=== PATIENT | female | born 1990 | race Hispanic/Latino ===

== ENCOUNTER 2017-03-06 16:31 | Emergency (ER) | payer SELFPAY ==
[2017-03-06 16:55] LABS: APPEARANCE,URINE Clear (CLEAR); BILIRUBIN,URINE Negative (NEGATIVE); COLOR,URINE Yellow (YELLOW); GLUCOSE, URINE (UA) Negative (NEGATIVE); KETONES,URINE 15 mg/dL (NEGATIVE); LEUKOCYTE ESTERASE ,URINE Small (NEGATIVE); NITRATE,URINE Negative (NEGATIVE); OCCULT BLOOD,URINE Negative (NEGATIVE); PH,URINE 6.5 (5.0-8.0); PROTEIN,URINE Negative (NEGATIVE)
[2017-03-06 17:05] LABS: HCG,QUAL RESULT NEGATIVE (NEGATIVE)
[2017-03-06] MEDS ORDERED: IPRATROPIUM/ALBUTEROL SULFATE 3 ML SOLUTION IH ONE (17:12)
[2017-03-06] MEDS ORDERED: ACETAMINOPHEN EXTRA STRENGTH 500 MG TABLET ONE (17:16)
[2017-03-06] MEDS ORDERED: SODIUM CHLORIDE 0.9% 1000ML 1,000 ML IV ONE (17:16)
[2017-03-06] MEDS ORDERED: ONDANSETRON HCL 4 MG/2 ML VIAL ONE (17:16)
[2017-03-06 17:32] LABS: RBC,URINE 0-1 /HPF (0-1)
[2017-03-06 17:33] LABS: BACTERIA,URINE Few /HPF (None Seen); SQUAMOUS EPITHELIAL CELL,UR Few /LPF (0-2)
[2017-03-06 17:37] LABS: CREATININE 0.7 mg/dL (0.5-1.5); POTASSIUM 3.2 mmol/L (3.5-5.1)
[2017-03-06 17:43] LABS: ALBUMIN 3.3 g/dL (3.5-5.0); BILIRUBIN,TOTAL 0.7 mg/dL (0.2-1.0); TOTAL PROTEIN, SERUM 6.8 g/dL (6.0-8.3)
[2017-03-06 17:45] LABS: BASOPHILS % (AUTO) 0.4 % (0.0-5.0); EOSINOPHILS % (AUTO) 1.1 % (0.0-8.0); HEMATOCRIT 36.4 % (36-48); MEAN CORPUSCULAR HEMOGLOBIN 29.5 pg (27.0-33.0); MEAN CORPUSCULAR HGB CONC 34.6 g/dL (32.0-36.0); MEAN CORPUSCULAR VOLUME 85.1 fL (79-99); MONOCYTES % (AUTO) 7.3 % (3.0-13.0); NEUTROPHILS % (AUTO) 86.5 % (40.0-77.0); PLATELET COUNT (AUTO) 192 K/uL (130-400); RED BLOOD CELL COUNT(AUTO) 4.27 MIL/uL (4.00-5.50); RED CELL DISTRIBUTION WIDTH 13.7 % (11.0-15.5); WHITE BLOOD COUNT (AUTO) 6.9 K/uL (4.8-10.8)
[2017-03-06 18:05] LABS: LYMPHOCYTES % (AUTO) 4.7 % (21.0-51.0)
== END 2017-03-06 18:21 | disposition home or self-care (01) ==
LOC: EDH 16:31
DX: J09.X2 Influenza due to identified novel influenza A virus with other respiratory manifestations (principal); R50.81 Fever presenting with conditions classified elsewhere; J45.909 Unspecified asthma, uncomplicated
CPT/HCPCS: 36415; 80053; 81001; 81025; 83690; 85025; 87804 ×2; 94640; 96361; 96374; 99284; J2405; J7030

== ENCOUNTER 2018-04-01 16:12 | Emergency (ER) | payer OTHER | END 2018-04-01 18:39 | disposition home or self-care (01) | LOC: EDH 16:12 | DX: H61.21 Impacted cerumen, right ear (principal); J45.909 Unspecified asthma, uncomplicated | CPT/HCPCS: 99282 ==

== ENCOUNTER 2021-04-26 21:26 | Inpatient (IN) | payer MEDICAID ==
[~2021-04-26] VITALS: Ht 149.9 cm; Wt 96.6 kg
[2021-04-26] MEDS ORDERED: LACTATED RINGERS 1000ML 1,000 ML IV PRN (22:30)
[2021-04-26] MEDS ORDERED: ROPIVACAINE 0.2% 100ML VIAL 100 ML EP SCH (22:30)
[2021-04-26] MEDS ORDERED: LACTATED RINGERS 500 ML 500 ML IV PRN (22:30)
[2021-04-26] MEDS ORDERED: PROMETHAZINE HCL 25 MG/ML 1ML AMPULE IM PRN (22:30)
[2021-04-26] MEDS ORDERED: MEPERIDINE-PF 50 MG/ML SYG IVP PRN (22:30)
[2021-04-26] MEDS ORDERED: EPHEDRINE SULFATE 50 MG/ML AMPULE IVP PRN (22:30)
[2021-04-26] MEDS ORDERED: NALOXONE HCL 0.4 MG/1 ML ML IV PRN (22:30)
[2021-04-26 22:33] LABS: APPEARANCE,URINE CLEAR (CLEAR); BILIRUBIN,URINE NEGATIVE (NEGATIVE); COLOR,URINE YELLOW (YELLOW); GLUCOSE, URINE (UA) NEGATIVE (NEGATIVE); KETONES,URINE NEGATIVE (NEGATIVE); LEUKOCYTE ESTERASE ,URINE TRACE (NEGATIVE); NITRATE,URINE NEGATIVE (NEGATIVE); OCCULT BLOOD,URINE NEGATIVE (NEGATIVE); PROTEIN,URINE 30 mg/dL (NEGATIVE); UROBILINOGEN,URINE 0.2 mg/dL (0.2-1.0)
[2021-04-26 22:47] LABS: HEMATOCRIT 33.2 % (36-48); MEAN CORPUSCULAR HEMOGLOBIN 28.3 pg (27.0-33.0); MEAN CORPUSCULAR HGB CONC 33.1 g/dL (32.0-36.0); MEAN CORPUSCULAR VOLUME 85.3 fL (79-99); RED BLOOD CELL COUNT(AUTO) 3.89 MIL/uL (4.00-5.50); RED CELL DISTRIBUTION WIDTH 13.5 % (11.0-15.5); WHITE BLOOD COUNT (AUTO) 7.1 K/uL (4.8-10.8)
[2021-04-26 22:55] LABS: RBC,URINE 0-1 /HPF (0-1)
[2021-04-26 22:56] LABS: BACTERIA,URINE Few /HPF (None Seen); SQUAMOUS EPITHELIAL CELL,UR Many /HPF (0-2)
[2021-04-27 00:42] VITALS: BP 103/55
[2021-04-27] MEDS ORDERED: PREN-196 PO (00:49)
[2021-04-27] MEDS ORDERED: OXYTOCIN-LR 20 UNITS/1000 ML 1,000 ML IV SCH ×2 (05:00→11:30)
[2021-04-27] MEDS ORDERED: LIDOCAINE HCL 1% 20 ML VIAL ONE (10:18)
[2021-04-27] MEDS ORDERED: METHYLERGONOVINE MALEATE 0.2 MG/1 ML ML ONE (10:19)
[2021-04-27] MEDS ORDERED: ACETAMINOPHEN 325 MG TAB PO PRN ×2 (11:30→12:00)
[2021-04-27] MEDS ORDERED: BENZOCAINE/LANOLIN/ALOE VERA 60 ML AEROSOL TP PRN ×2 (11:30→12:00)
[2021-04-27] MEDS ORDERED: WITCH HAZEL 1 PAD TP PRN ×2 (11:30→12:00)
[2021-04-27] MEDS ORDERED: DIPH,PERTUSS(ACELL),TET VAC/PF 0.5 ML VIAL IM PRN (11:30)
[2021-04-27] MEDS ORDERED: LANOLIN 30GM OINTMENT TP PRN ×2 (11:30→12:00)
[2021-04-27] MEDS ORDERED: MEASLES/MUMPS/RUBELLA VACCINE, LIVE 0.5 ML/VIAL SQ PRN (11:30)
[2021-04-27] MEDS: IBUPROFEN 600 MG TABLET PO PRN ×2 (11:42→21:33)
[2021-04-27] MEDS ORDERED: ACETAMINOPHEN WITH CODEINE 1 TAB TAB PO PRN (12:00)
[2021-04-27] MEDS ORDERED: IBUPROFEN 600 MG TABLET PO PRN (12:00)
[2021-04-27 12:32] LABS: RAPID PLASMA REAGIN NONREACTIVE (NONREACTIVE)
[2021-04-27 14:06] VITALS: BP 113/50
[2021-04-27] MEDS: ACETAMINOPHEN WITH CODEINE 1 TAB TAB PO PRN (14:14)
[2021-04-27 17:15] VITALS: BP 104/56
[2021-04-27 19:40] VITALS: BP 105/55
[2021-04-27] MEDS ORDERED: DOCUSATE SODIUM 100 MG CAP PO SCH (21:00)
[2021-04-27] MEDS: DOCUSATE SODIUM 100 MG CAP PO SCH (21:31)
[2021-04-27 23:02] VITALS: BP 117/81
[2021-04-28] MEDS: ACETAMINOPHEN WITH CODEINE 1 TAB TAB PO PRN ×2 (00:20→11:59)
[2021-04-28 03:41] VITALS: BP 92/60
[2021-04-28 07:05] LABS: HEMATOCRIT 28.3 % (36-48); MEAN CORPUSCULAR HEMOGLOBIN 28.1 pg (27.0-33.0); MEAN CORPUSCULAR HGB CONC 31.8 g/dL (32.0-36.0); MEAN CORPUSCULAR VOLUME 88.4 fL (79-99); RED BLOOD CELL COUNT(AUTO) 3.2 MIL/uL (4.00-5.50); RED CELL DISTRIBUTION WIDTH 13.6 % (11.0-15.5); WHITE BLOOD COUNT (AUTO) 8.7 K/uL (4.8-10.8)
[2021-04-28 07:41] VITALS: BP 90/46
[2021-04-28] MEDS: DOCUSATE SODIUM 100 MG CAP PO SCH (08:38)
[2021-04-28] MEDS ORDERED: IBUP-2077 PO (11:28)
[2021-04-28 11:35] VITALS: BP 108/51
== END 2021-04-28 14:20 | disposition home or self-care (01) | DRG 560 ==
LOC: LDH 21:26 → WSH 04-27 14:00
PROVIDERS: ADMIT Obstetrics & Gynecology; ATTEND Obstetrics & Gynecology
PROC: 10E0XZZ Delivery of Products of Conception, External Approach (ICD-10-PCS; principal; 2021-04-27)
PROC: 3E033VJ Introduction of Other Hormone into Peripheral Vein, Percutaneous Approach (ICD-10-PCS; 2021-04-27)
PROC: 10907ZC Drainage of Amniotic Fluid, Therapeutic from Products of Conception, Via Natural or Artificial Opening (ICD-10-PCS; 2021-04-27)
PROC: 3E0234Z Introduction of Serum, Toxoid and Vaccine into Muscle, Percutaneous Approach (ICD-10-PCS; 2021-04-27)
DX: O80 Encounter for full-term uncomplicated delivery (principal); Z37.0 Single live birth; Z23 Encounter for immunization; Z3A.39 39 weeks gestation of pregnancy
CPT/HCPCS: 36415; 81001; 85027; 86592; 86701; 86850; 86900; 86901; 87340; 87390; 90715; G0378; J2175; J2210; J2550; J2590; J7120

== ENCOUNTER 2022-11-07 21:20 | Inpatient (IN) | payer MEDICAID ==
[~2022-11-07] VITALS: Ht 149.9 cm; Wt 104.3 kg
[~2022-11-07 21:20] MED LIST: IBUP-2077 PO; PREN-196 PO
[2022-11-07] MEDS ORDERED: EPHEDRINE SULFATE 50 MG/ML AMPULE IVP PRN (22:00)
[2022-11-07] MEDS ORDERED: ROPIVACAINE 0.2% 100ML VIAL 100 ML EP SCH (22:00)
[2022-11-07] MEDS ORDERED: PROMETHAZINE HCL 25 MG/ML 1ML AMPULE IM PRN (22:00)
[2022-11-07] MEDS ORDERED: NALOXONE HCL 0.4 MG/1 ML ML IV PRN (22:00)
[2022-11-07] MEDS ORDERED: LACTATED RINGERS 500 ML 500 ML IV PRN (22:00)
[2022-11-07] MEDS ORDERED: MEPERIDINE-PF 50 MG/ML SYG IVP PRN (22:00)
[2022-11-07] MEDS ORDERED: LACTATED RINGERS 1000ML 1,000 ML IV PRN (22:00)
[2022-11-07] MEDS ORDERED: PREN-196 PO (22:17)
[2022-11-07 23:27] VITALS: BP 108/54
[2022-11-07] MEDS ORDERED: AMPICILLIN 2GM+NS 100ML 100 ML IV SCH (23:30)
[2022-11-07 23:35] LABS: MEAN CORPUSCULAR VOLUME 87.5 fL (79-99); RED BLOOD CELL COUNT(AUTO) 3.43 MIL/uL (4.00-5.50); RED CELL DISTRIBUTION WIDTH 13.9 % (11.0-15.5); WHITE BLOOD COUNT (AUTO) 7.7 K/uL (4.8-10.8)
[2022-11-07] MEDS: LACTATED RINGERS 1000ML 1,000 ML IV SCH (23:51)
[2022-11-07 23:58] LABS: APPEARANCE,URINE CLEAR (CLEAR); BILIRUBIN,URINE NEGATIVE (NEGATIVE); COLOR,URINE YELLOW (YELLOW); GLUCOSE, URINE (UA) 30 mg/dL (NEGATIVE); KETONES,URINE 5 mg/dL (NEGATIVE); LEUKOCYTE ESTERASE ,URINE 250 Leu/uL (NEGATIVE); NITRATE,URINE NEGATIVE (NEGATIVE); OCCULT BLOOD,URINE NEGATIVE (NEGATIVE); PROTEIN,URINE 30 mg/dL (NEGATIVE)
[2022-11-08 00:03] LABS: ADD UA MICROSCOPIC YES
[2022-11-08 00:12] LABS: BACTERIA,URINE RARE /HPF (None Seen); MUCUS,URINE RARE LPF (None Seen); SQUAMOUS EPITHELIAL CELL,UR MOD /HPF (0-2)
[2022-11-08] MEDS: AMPICILLIN 1GM+NS 50ML 50 ML IV SCH ×3 (03:51→23:30)
[2022-11-08 05:07] LABS: AMPHET/METH SCREEN,URINE NEGATIVE (NEGATIVE); BARBITURATE SCREEN, URINE NEGATIVE (NEGATIVE); BENZODIAZEPINES SCREEN,URINE NEGATIVE (NEGATIVE); CANNABINOID SCREEN,URINE NEGATIVE (NEGATIVE); COCAINE SCREEN,URINE NEGATIVE (NEGATIVE); OPIATE SCREEN,URINE NEGATIVE (NEGATIVE); PHENCYCLIDINE SCREEN,URINE NEGATIVE (NEGATIVE)
[2022-11-08] MEDS ORDERED: OXYTOCIN-LR 30 UNITS/500ML 500 ML IV SCH ×2 (06:00→14:00)
[2022-11-08] MEDS: LACTATED RINGERS 1000ML 1,000 ML IV SCH (06:18)
[2022-11-08 09:43] LABS: RAPID PLASMA REAGIN NONREACTIVE (NONREACTIVE)
[2022-11-08] MEDS ORDERED: WITCH HAZEL 1 PAD TP PRN (14:00)
[2022-11-08] MEDS ORDERED: MEASLES/MUMPS/RUBELLA VACCINE, LIVE 0.5 ML/VIAL SQ PRN (14:00)
[2022-11-08] MEDS ORDERED: ACETAMINOPHEN 325 MG TAB PO PRN (14:00)
[2022-11-08] MEDS ORDERED: LANOLIN 30GM OINTMENT TP PRN (14:00)
[2022-11-08] MEDS ORDERED: ACETAMINOPHEN WITH CODEINE 1 TAB TAB PO PRN (14:00)
[2022-11-08] MEDS ORDERED: DIPH,PERTUSS(ACELL),TET VAC/PF 0.5 ML VIAL IM PRN (14:00)
[2022-11-08] MEDS ORDERED: BENZOCAINE/LANOLIN/ALOE VERA 60 ML AEROSOL TP PRN (14:00)
[2022-11-08] MEDS: IBUPROFEN 600 MG TABLET PO PRN (15:27)
[2022-11-08 19:25] VITALS: BP 116/69; PULSE 56; RESP 18
[2022-11-08] MEDS: DOCUSATE SODIUM 100 MG CAP PO SCH (21:23)
[2022-11-08 23:15] VITALS: BP 113/69; PULSE 62; RESP 18
[2022-11-09] MEDS: AMPICILLIN 1GM+NS 50ML 50 ML IV SCH ×2 (02:47→02:48)
[2022-11-09 03:36] VITALS: BP 122/66; PULSE 60; RESP 18
[2022-11-09 06:06] LABS: HEMATOCRIT 26.6 % (36-48); MEAN CORPUSCULAR HEMOGLOBIN 28.8 pg (27.0-33.0); MEAN CORPUSCULAR HGB CONC 32.3 g/dL (32.0-36.0); RED BLOOD CELL COUNT(AUTO) 2.99 MIL/uL (4.00-5.50); RED CELL DISTRIBUTION WIDTH 13.8 % (11.0-15.5)
[2022-11-09 07:10] VITALS: BP 116/54; PULSE 64; RESP 18
[2022-11-09] MEDS: DOCUSATE SODIUM 100 MG CAP PO SCH (08:59)
[2022-11-09] MEDS: IBUPROFEN 600 MG TABLET PO PRN (08:59)
[2022-11-09 12:32] VITALS: BP 121/71; PULSE 67; RESP 18
[2022-11-09 15:48] VITALS: BP 114/64; PULSE 63; RESP 18
== END 2022-11-09 16:05 | disposition home or self-care (01) | DRG 560 ==
LOC: LDH 21:20 → WSH 11-08 16:34
PROVIDERS: ADMIT Obstetrics & Gynecology; ATTEND Obstetrics & Gynecology
PROC: 10E0XZZ Delivery of Products of Conception, External Approach (ICD-10-PCS; principal; 2022-11-08)
PROC: 10907ZC Drainage of Amniotic Fluid, Therapeutic from Products of Conception, Via Natural or Artificial Opening (ICD-10-PCS; 2022-11-08)
PROC: 3E0134Z Introduction of Serum, Toxoid and Vaccine into Subcutaneous Tissue, Percutaneous Approach (ICD-10-PCS; 2022-11-08)
DX: O69.81X0 Labor and delivery complicated by cord around neck, without compression, not applicable or unspecified (principal); Z37.0 Single live birth; E66.09 Other obesity due to excess calories; Z3A.39 39 weeks gestation of pregnancy; Z23 Encounter for immunization
CPT/HCPCS: 36415; 80305; 81001; 85027; 86592; 86701; 86850; 86900; 86901; 87088; 87340; 87390; 90707; A4351; G0378; J0290; J2175; J2550; J7120; A4510